=== PATIENT | male | born 1985 | race Two or more races ===

== ENCOUNTER 2016-05-24 21:55 | Emergency (ER) | payer OTHER ==
[~2016-05-24] VITALS: Ht 177.8 cm; Wt 77.1 kg
[2016-05-24] MEDS ORDERED: IV SET PRIMARY 1 EA INFUS.SET MC ONE (22:10)
[2016-05-24] MEDS ORDERED: IV NS 0.9% 1,000 ML ONE (22:10)
[2016-05-24] MEDS ORDERED: LORAZEPAM INJ 2 MG/ML VIAL ONE (22:10)
[2016-05-24 22:27] LABS: BASOPHILS % (AUTO) 0.5 % (0.0-2.0); DIFF TOTAL % 100 %; EOSINOPHILS # (AUTO) 0.1 /CMM (0.0-0.7); EOSINOPHILS % (AUTO) 1.8 % (0.0-6.0); HEMATOCRIT 42 % (39-51); HEMOGLOBIN 13.7 g/dL (13.5-17.5); LYMPHOCYTES # (AUTO) 2.8 /CMM (0.8-4.8); LYMPHOCYTES % (AUTO) 37.9 % (20.0-44.0); MEAN CORPUSCULAR HEMOGLOBIN 27 PG (26.0-33.0); MEAN CORPUSCULAR HGB CONC 33 g/dl (31.0-36.0); MEAN CORPUSCULAR VOLUME 84 fL (80-96); MONOCYTES # (AUTO) 0.6 /CMM (0.1-1.30); MONOCYTES % (AUTO) 8.6 % (2.0-12.0); NEUTROPHILS # (AUTO) 3.7 /CMM (1.8-8.9); NEUTROPHILS % (AUTO) 51.2 % (43.0-81.0); PLATELET COUNT (AUTO) 261 /CMM (150-450); RED BLOOD CELL COUNT(AUTO) 5.02 MIL/uL (4.5-6.0); WHITE BLOOD COUNT (AUTO) 7.3 K/uL (4.3-11.0)
[2016-05-24] MEDS ORDERED: LIDOCAINE 2% JEL UROJET 10 ML MM ONE (22:29)
[2016-05-24] MEDS ORDERED: IV NS 0.9% 1,000 ML BAG IV ONE (22:30)
[2016-05-24] MEDS ORDERED: LORAZEPAM INJ 2 MG/ML VIAL IVP ONE (22:30)
[2016-05-24 22:38] LABS: ANION GAP 9 (5-14); CALCIUM, SERUM 9.4 mg/dL (8.5-10.1); CARBON DIOXIDE 32 mmol/L (21-32); CHLORIDE 111 mmol/L (98-107); CREATININE 1.2 mg/dL (0.6-1.3); GFR 72 mL/min (>60); GLUCOSE 90 mg/dL (74-106); POTASSIUM 3.9 mmol/L (3.5-5.1); SODIUM SERUM 148 mmol/L (136-145); UREA NITROGEN, BLOOD 20 mg/dL (7-18)
[2016-05-24 22:43] LABS: ALANINE AMINOTRANSFERASE 33 U/L (12-78); ALBUMIN 3.8 g/dL (3.4-5.0); ASPARTATE AMINOTRANSFERASE 32 U/L (15-37); BILIRUBIN,DIRECT 0.1 mg/dL (0.0-0.2); BILIRUBIN,TOTAL 0.6 mg/dL (0.2-1.0); INDIRECT BILIRUBIN 0.5 mg/dL (0.0-1.1); INR 1.05 (0.87-1.13); PROTHROMBIN TIME 11.3 SECS (9.5-12.7); TOTAL PROTEIN, SERUM 7.2 g/dL (6.4-8.2)
[2016-05-24 22:44] LABS: ACETAMINOPHEN 0 ug/ml (10-30); SALICYLATE 1.2 mg/dL (2.8-20.0)
[2016-05-24 23:00] LABS: KETONES,URINE NEGATIVE (NEGATIVE); LEUKOCYTE ESTERASE ,URINE NEGATIVE (NEGATIVE)
[2016-05-24 23:06] LABS: ADD UA MICROSCOPIC YES
[2016-05-24 23:08] LABS: ADD URINE CULTURE NO; PHENCYCLIDINE SCREEN,URINE NEGATIVE (NEGATIVE); RBC,URINE 0-2 /HPF (0-2)
[2016-05-24 23:09] LABS: CANNABINOID, URINE POSITIVE (NEGATIVE)
[2016-05-24 23:22] VITALS: BP 155/101
== END 2016-05-24 23:23 | disposition home or self-care (01) ==
LOC: EDSEX 21:58 → ER 21:58
DX: F19.10 Other psychoactive substance abuse, uncomplicated (principal); E86.0 Dehydration; E87.0 Hyperosmolality and hypernatremia; R79.1 Abnormal coagulation profile
CPT/HCPCS: 36415; 51702; 80048; 80076; 80305; 80329; 81001; 82962; 85025; 85730; 93005; 96361; 96374; 99285; A4606; G0480 ×2; J2060; J3490; J7030; Z7610; 81000-TC; G6039-TC

== ENCOUNTER 2020-02-09 10:26 | Emergency (ER) | payer OTHER ==
[~2020-02-09] VITALS: Ht 182.9 cm; Wt 81.6 kg
[2020-02-09 11:25] VITALS: BP 130/78
== END 2020-02-09 11:26 ==
LOC: ER 10:32
DX: F19.10 Other psychoactive substance abuse, uncomplicated (principal)